=== PATIENT | female | born 1935 | race Caucasian/White ===

== ENCOUNTER 2018-03-05 15:40 | Inpatient (IN) | payer OTHER ==
[~2018-03-05 15:40] MED LIST: VANCOMYCIN 1.25 GM in NA CHLORIDE 0.9% 250 ML IVPB SCH
[2018-03-05] MEDS ORDERED: NA CHLORIDE 0.9% 500 ML ONE (16:22)
[2018-03-05 16:24] LABS: Absolute Lymphocytes (CBC) 3.1 K/uL (0.7-4.9); Absolute Monocytes 0.5 K/uL (0.1-1.3); Absolute Neutrophil 4.4 K/uL (1.8-8.0); Basophils % 0.4 % (0-1.3); Eosinophils % 0.4 % (0-4.4); Hematocrit 45.9 % (36.0-45.0); Lymphocytes % 38.5 % (15.3-44.8); MCH 30.9 pg (27.0-35.0); MCV 92.6 fL (80-100); MPV 8.6 fL (7.6-11.3); Monocytes % 6.7 % (3.3-12.3); RBC Red Blood Cell Count 4.96 M/uL (3.86-4.86)
--- NOTE | 2018-03-05 17:18 | ER ---
Nurse's Notes [facility] Name: Jessica Gibson Age: 83 yrs Sex: Female : 1935 Arrival Date: 03/05/2018 Time: 15:43 Bed 27 Private MD: Diagnosis: Thrush;Cellulitis of right lower limb Presentation: 03/05 15:44 Presenting complaint: EMS states: wound infection on right foot that is progressing. Pt dm5 is unable to take oral medication due to thrush and pain. Wound infection/redness marked yesterday in wound healing center and infection is spreading up foot. pt is afebrile at this time. Transition of care: patient was received from another setting of care (long-term care facility), [facility]. Onset of symptoms was February 19, 2018. Risk Assessment: Do you want to hurt yourself or someone else? Unable to obtain Other: pt is nonverbal. Care prior to arrival: None. 15:44 Method Of Arrival: EMS: [facility] dm5 15:44 Acuity: NOVA 3 dm5 16:30 Initial Sepsis Screen: Does the patient meet any 2 criteria? No. Patient's initial tw2 sepsis screen is negative. Does the patient have a suspected source of infection? Yes: Skin breakdown/wound. Triage Assessment: 15:48 General: Appears in no apparent distress. uncomfortable, Behavior is calm, flat. Pain: dm5 Complains of pain in right foot. Neuro: Level of Consciousness is awake, pt does not speak or follow commands, this is baseline. Derm: Wound noted medial aspect of right great toe joint. Historical: - Allergies: 15:48 buspirone HCl; dm5 15:48 Sulfa (Sulfonamide Antibiotics); dm5 15:48 Simvastatin; dm5 15:48 venlafaxine; dm5 15:48 ezetimibe; dm5 - PSHx: 15:48 Tonsillectomy; Hysterectomy; dm5 - Immunization history:: Adult Immunizations. - Social history:: Smoking status: Patient/guardian denies using tobacco, the patient reports quitting approximately 10 years ago. - Family history:: not pertinent. - Ebola Screening: : Patient denies travel to an Ebola-affected area in the 21 days before illness onset. - Hospitalizations: : No recent hospitalization is reported. - History obtained from: granddaughter. Screenin:30 Abuse screen: Denies injuries from another. Nutritional screening: No deficits noted. tw2 Tuberculosis screening: No symptoms or risk factors identified. Fall Risk Secondary diagnosis (15 points) dementia, impaired mobility, CVA. Assessment: 16:00 General: Appears in no apparent distress. slender, Behavior is flat. Pain: Complains of tw2 pain in right foot. Neuro: Level of Consciousness is awake, pt is awake, but does not communicate, per family this is pts baseline. Cardiovascular: Heart tones S1 S2 Patient's skin is warm and dry. Respiratory: Airway is patent Respiratory effort is even, unlabored, Respiratory pattern is regular, symmetrical, Breath sounds are clear bilaterally. GI: No signs and/or symptoms were reported involving the gastrointestinal system. Bowel sounds present X 4 quads. : No signs and/or symptoms were reported regarding the genitourinary system. EENT: No signs and/or symptoms were reported regarding the EENT system. Derm:. Derm: Wound noted right foot. Musculoskeletal: contracture noted to left arm, left sided weakness from previous CVA. 16:30 Reassessment: Patient appears in no apparent distress at this time. No changes from tw2 previously documented assessment. Patient and/or family updated on plan of care and expected duration. Pain level reassessed. 17:40 Reassessment: Patient appears in no apparent distress at this time. No changes from tw2 previously documented assessment. Patient and/or family updated on plan of care and expected duration. Pain level reassessed. wound care to wound on the right great toe and ball of right foot, wet to dry dressing applied, wrapped with kerlix, secure with paper tape, pts foot was elevated using towel to offload the area. 18:14 Reassessment: Patient appears in no apparent distress at this time. No changes from tw2 previously documented assessment. Patient and/or family updated on plan of care and expected duration. Pain level reassessed. Vital Signs: 15:48 BP 107 / 86; Pulse 66; Resp 16; Pulse Ox 100% on R/A; Weight 74.84 kg (R); Height 5 ft. dm5 7 in. (170.18 cm) (R); 16:29 BP 123 / 67; Pulse 68; Resp 14; Temp 97.6; Pulse Ox 100% on 2 lpm NC; tw2 17:49 BP 142 / 85; Pulse 92; Resp 16; Pulse Ox 100% on 2 lpm NC; tw2 15:48 Body Mass Index 25.84 (74.84 kg, 170.18 cm) dm5 ED Course: 15:43 Patient arrived in ED. dm5 15:46 Triage completed. dm5 15:47 Yeison Naqvi MD is Attending Physician. rn 15:48 Arm band placed on Patient placed in an exam room, on ice cream freezer, on pulse dm5 oximetry. 15:50 Bed in low position. Call light in reach. Side rails up X2. Adult w/ patient. Cardiac tw2 monitor on. Pulse ox on. NIBP on. Warm blanket given. 16:00 No provider procedures requiring assistance completed. Inserted saline lock: 22 gauge tw2 in right forearm, using aseptic technique. Blood collected. 16:25 Estefany Roldan RN is Primary Nurse. tw2 17:16 Thomas Redman MD is Hospitalizing Provider. rn 18:14 Patient admitted, IV remains in place. tw2 Administered Medications: 16:15 Drug: NS 0.9% 500 ml Route: IV; Rate: bolus; Site: right forearm; tw2 17:00 Follow up: Response: No adverse reaction; IV Status: Completed infusion; IV Intake: tw2 500ml 17:35 Drug: vancoMYCIN 1 grams Route: IVPB; Infused Over: 2 hrs; Site: right forearm; tw2 18:14 Follow up: IV Status: Infusion continued upon admission tw2 Intake: 17:00 IV: 500ml; Total: 500ml. tw2 Outcome: 17:17 Decision to Hospitalize by Provider. rn 18:14 Admitted to Med/surg accompanied by tech, via stretcher, room 407, with chart, Report tw2 called to ZACHARY Wilburn 18:14 Condition: stable 18:14 Instructed on the need for admit. 18:22 Patient left the ED. tw2 Signatures: Lisset Gibson RN RN 5 Yeison Naqvi MD MD rn Wise, Tara, RN RN tw2
--- NOTE | 2018-03-05 17:18 | EDPHYS ---
Physician Documentation [facility] Name: Jessica Gibson Age: 83 yrs Sex: Female : 1935 Arrival Date: 03/05/2018 Time: 15:43 Bed 27 Private MD: ED Physician Yeison Naqvi HPI: 03/05 15:54 This 83 yrs old Female presents to ER via EMS with complaints of Wound rn Infection, Thrush. 15:55 The patient presents with cellulitis of the right foot. rn 15:56 Description: erythematous, warm. Onset: The symptoms/episode began/occurred at an rn unknown time. Possible cause(s): unknown. Severity of symptoms: At their worst the symptoms were mild, in the emergency department the symptoms are unchanged. The patient has experienced similar episodes in the past. Family reports diagnosed with cellulitis yesterday, originating from chronic ulcer of right foot, seen at wound care, prescribed augmentin, has not been eating or drinking, + thrush, unable to take oral abx, brought in because not able to take abx, and cellulitis/warmth/redness has increased beyond markings at wound care. . Historical: - Allergies: 15:48 buspirone HCl; dm5 15:48 Sulfa (Sulfonamide Antibiotics); dm5 15:48 Simvastatin; dm5 15:48 venlafaxine; dm5 15:48 ezetimibe; dm5 - PSHx: 15:48 Tonsillectomy; Hysterectomy; dm5 - Immunization history:: Adult Immunizations. - Social history:: Smoking status: Patient/guardian denies using tobacco, the patient reports quitting approximately 10 years ago. - Family history:: not pertinent. - Ebola Screening: : Patient denies travel to an Ebola-affected area in the 21 days before illness onset. - Hospitalizations: : No recent hospitalization is reported. - History obtained from: granddaughter. ROS: 15:56 Unable to obtain ROS due to baseline dementia. rn Exam: 15:56 Constitutional: This is a well developed, well nourished patient who is awake, alert, rn and in no acute distress. Head/Face: Normocephalic, atraumatic. ENT: dry MM, + oral thrush Cardiovascular: Regular rate and rhythm, No pulse deficits. Respiratory: Lungs have equal breath sounds bilaterally, clear to auscultation, No increased work of breathing, no retractions or nasal flaring. Abdomen/GI: soft, non-tender Skin: Warm, dry MS/ Extremity: Pulses equal but diminished, + ulceration left foot medial to base of 1st toe, no drainage, + wound packing, + surrounding erythema and warmth, no streaking, no fluctuance, no crepitus. Neuro: Awake and alert, non-verbal, doesn't follow commands, + left sided contractures. Vital Signs: 15:48 BP 107 / 86; Pulse 66; Resp 16; Pulse Ox 100% on R/A; Weight 74.84 kg (R); Height 5 ft. dm5 7 in. (170.18 cm) (R); 16:29 BP 123 / 67; Pulse 68; Resp 14; Temp 97.6; Pulse Ox 100% on 2 lpm NC; tw2 17:49 BP 142 / 85; Pulse 92; Resp 16; Pulse Ox 100% on 2 lpm NC; tw2 15:48 Body Mass Index 25.84 (74.84 kg, 170.18 cm) dm5 MDM: 15:47 Patient medically screened. rn 17:14 Differential diagnosis: cellulitis. Data reviewed: vital signs, nurses notes, lab test rn result(s), radiologic studies, plain films, and as a result, I will admit patient. Counseling: I had a detailed discussion with the patient and/or guardian regarding: the historical points, exam findings, and any diagnostic results supporting the discharge/admit diagnosis, lab results, radiology results, the need for further work-up and treatment in the hospital. Admission orders: after a detailed discussion of the patient's condition and case, the admit orders are written by me. ED course: Pt unable to take PO due to weakness/AMS/dementia/thrush, admitted to Dr. Redman for IV abx given cellulitis worse, as well as hospice evaluation.. 03/05 15:48 Order name: CBC with Diff; Complete Time: 16:56 rn 03/05 15:48 Order name: Basic Metabolic Panel; Complete Time: 16:56 rn 03/05 15:48 Order name: Blood Culture Adult (2) rn 03/05 15:48 Order name: Procalcitonin; Complete Time: 16:56 rn 03/05 15:48 Order name: Lactate; Complete Time: 16:56 rn 03/05 15:48 Order name: Wound Culture rn 03/05 15:48 Order name: IV Start; Complete Time: 16:10 rn 03/05 15:48 Order name: Wound Care; Complete Time: 17:37 rn Administered Medications: 16:15 Drug: NS 0.9% 500 ml Route: IV; Rate: bolus; Site: right forearm; tw2 17:00 Follow up: Response: No adverse reaction; IV Status: Completed infusion; IV Intake: tw2 500ml 17:35 Drug: vancoMYCIN 1 grams Route: IVPB; Infused Over: 2 hrs; Site: right forearm; tw2 18:14 Follow up: IV Status: Infusion continued upon admission tw2 Disposition: 03/05/18 17:17 Hospitalization ordered by Thomas Redman for Inpatient Admission. Preliminary diagnosis are Thrush, Cellulitis of right lower limb. - Bed requested for Telemetry/MedSurg (Inpatient). - Status is Inpatient Admission. tw2 - Condition is Stable. - Problem is an ongoing problem. - Symptoms are unchanged. UTI on Admission? No Signatures: Dispatcher [employer] [facility] Lisset Gibson RN RN dm5 Yeison Naqvi MD MD rn Wise, Tara, RN RN tw2 Jie Layc RN RN df Corrections: (The following items were deleted from the chart) 16:22 15:49 Foot Right 3 View+RAD.RAD.BRZ ordered. [facility] 17:54 17:17 Hospitalization Ordered by Thomas Redman MD for Inpatient Admission. Preliminary df diagnosis is Thrush; Cellulitis of right lower limb. Bed requested for Telemetry/MedSurg (Inpatient). Status is Inpatient Admission. Condition is Stable. Problem is an ongoing problem. Symptoms are unchanged. UTI on Admission? No. rn 18:22 17:54 03/05/2018 17:17 Hospitalization Ordered by Thomas Redman MD for Inpatient tw2 Admission. Preliminary diagnosis is Thrush; Cellulitis of right lower limb. Bed requested for Telemetry/MedSurg (Inpatient). Status is Inpatient Admission. Condition is Stable. Problem is an ongoing problem. Symptoms are unchanged. UTI on Admission? No. df
[2018-03-05] MEDS ORDERED: ONDANSETRON 4 MG/2 ML VIAL IV PRN (17:34)
[2018-03-05] MEDS ORDERED: ACETAMINOPHEN 500 MG TAB PO PRN (17:34)
[2018-03-05] MEDS ORDERED: MORPHINE 2 MG/ML SYR IV PRN (17:34)
[2018-03-05] MEDS ORDERED: VANCOMYCIN 1 GM/250 ML BAG ONE (17:37)
[2018-03-05] MEDS ORDERED: VANCOMYCIN 1.25 GM in NA CHLORIDE 0.9% 250 ML IVPB SCH (18:00)
[2018-03-05] MEDS: VANCOMYCIN 1.25 GM in NA CHLORIDE 0.9% 250 ML IVPB SCH (18:00)
[2018-03-05] MEDS: D5 0.45 NS 1,000 ML IV SCH (19:55)
[2018-03-05] MEDS ORDERED: VANCOMYCIN 1GM/D5W 200 ML IV SCH (21:00)
[2018-03-05 21:40] VITALS: BMI 25.8
--- NOTE | 2018-03-05 22:42 | P.HP ---
Certification for Inpatient Patient admitted to: Inpatient With expected LOS: >2 Midnights Practitioner: I am a practitioner with admitting privileges, knowledge of patient current condition, hospital course, and medical plan of care. Services: Services provided to patient in accordance with Admission requirements found in Title 42 Section 412.3 of the Code of Federal Regulations Patient History Date of Service: 03/05/18 Reason for admission: cellulitis History of Present Illness: Ms Gibson is an 83 years old woman with history of multiple medical problems including HTN, Dementia, CVA, CAD who start about 2 weeks ago with a wound on her right foot first toe. Gradually the wound was getting worse, and currently has a black eschar on the center, with a redness area around. No history of fever or chills, however, the patient has been more sleepy than usual today. At arrival on ER she is not following commands, remain afebrile, WBC WNL. Allergies No Known Allergies Allergy (Unverified 03/05/18 21:44) Home medications list reviewed: Yes Home Medications: ALPRAZolam [Xanax*] 1 tab PO BIDP PRN 05/12/13 Dipyridamole/Aspirin [Aggrenox 25 mg-200 mg Cap*] 1 cap PO BID 05/12/13 Docosahexanoic AC/Epa [Fish Oil 1,000 MG*] 1 cap PO TID 05/12/13 Galantamine [Razadyne*] 12 mg PO BID 05/12/13 Garlic Tab 1,000 mg PO TID 05/12/13 Melatonin 5 mg PO BEDTIME PRN 05/12/13 Niacin [Niacor] 500 mg PO BEDTIME 05/12/13 Plant Stanol Erma [Cholest Off] 450 mg PO BID 05/12/13 Rosuvastatin [Crestor*] 5 mg PO M,W,F 05/12/13 Rivaroxaban [Xarelto*] 5 mg PO DAILY #30 tablet 05/19/13 Hydrocodone 10/APAP 325 [[place] 10/325*] 1 tab PO Q8HP PRN #30 tab 05/21/13 levoFLOXacin [Levaquin*] 500 mg PO DAILY #5 tab 09/16/13 predniSONE [Deltasone*] 10 mg PO SEECOM #15 tab 09/16/13 - Past Medical/Surgical History Has patient received pneumonia vaccine in the past: Yes Diabetic: No -: CVA -: CAD -: Alzheimer's -: Hyperlipidemia -: AAA -: History of DVT. -: TONSILECTOMY, HYSTERCTOMY, 05/2013, partial hip surgery -: shoulder 05/2013 Psychosocial/ Personal History: skilled nursing resident. - Family History Father -: Heart disease, Hypertension, Diabetes Mother -: Heart disease, Cancer - Social History Smoking Status: Never smoker Alcohol use: No CD- Drugs: No Caffeine use: Yes Place of Residence: Long-Term Review of Systems 10-point ROS is otherwise unremarkable Physical Examination - Vital Signs Temperature: 97.6 F Blood Pressure: 142/85 Pulse: 92 Respirations: 16 - Physical Exam General: Alert, In no apparent distress, Other (obtunded) HEENT: Atraumatic, PERRLA, Mucous membr. moist/pink, Sclerae nonicteric Neck: Supple, 2+ carotid pulse no bruit, No LAD, Without JVD or thyroid abnormality Respiratory: Clear to auscultation bilaterally, Normal air movement Cardiovascular: Regular rate/rhythm, Normal S1 S2 Gastrointestinal: Normal bowel sounds, No tenderness Musculoskeletal: No tenderness Integumentary: No rashes Neurological: Normal strength at 5/5 x4 extr, Sensation intact, Normal reflexes 2+ Lymphatics: No axilla or inguinal lymphadenopathy - Studies Laboratory Data (last 24 hrs) 03/05/18 16:00: Sodium 143, Potassium 4.0, BUN 18, Creatinine 0.80, Glucose 98 03/05/18 16:00: WBC 8.2, Hgb 15.3 H, Hct 45.9 H, Plt Count 233 Assessment and Plan - Problems (Diagnosis) (1) Cellulitis Current Visit: Yes Status: Acute Qualifiers: Site of cellulitis: extremity Site of cellulitis of extremity: toe Laterality: right Qualified Code(s): L03.031 - Cellulitis of right toe (2) Dementia Current Visit: No Status: Chronic - Plan The patient will be admitted to the hospital due to right foot cellulits/wound. She has been started on empiric antibiotic treatment, family is considering to start hospice. Social service consult done. Consider to consult surgery team if the family decided to continue her medical treatment. - Advance Directives Does patient have a Living Will: Yes Does patient have a Durable POA for Healthcare: Yes - Code Status/Comfort Care Code Status Assessed: Yes Code Status: Full Code
[2018-03-05] MEDS: Levofloxacin 750mg IV 750 MG/150 ML BAG IV SCH (23:00)
[2018-03-06 04:41] LABS: Absolute Lymphocytes (CBC) 2.1 K/uL (0.7-4.9); Absolute Monocytes 0.5 K/uL (0.1-1.3); Absolute Neutrophil 3.3 K/uL (1.8-8.0); Basophils % 0.5 % (0-1.3); Hematocrit 39.4 % (36.0-45.0); Lymphocytes % 35.4 % (15.3-44.8); MCH 31.3 pg (27.0-35.0); MPV 8.7 fL (7.6-11.3); Monocytes % 8.8 % (3.3-12.3); RBC Red Blood Cell Count 4.33 M/uL (3.86-4.86)
[2018-03-06 04:55] LABS: Potassium 3.6 mmol/L (3.5-5.1)
[2018-03-06] MEDS: D5 0.45 NS 1,000 ML IV SCH ×2 (06:19→20:20)
[2018-03-06] MEDS: NYSTATIN 500,000 UNIT/5 ML UDC PO SCH ×4 (09:01→20:20)
--- NOTE | 2018-03-06 15:26 | RAD REPORT ---
EXAM DESCRIPTION: US - Upper Lower Extrem Art Multi - 03/06/2018 3:00 pm CLINICAL HISTORY: Nonhealing foot wound, leg pain COMPARISON: None. TECHNIQUE: Right brachial artery pressure measurements were obtained. Doppler interrogation and pena scale assessment performed. Waveforms were obtained along the length of each lower extremity. Ankle p ressure measurements were obtained with index values calculated. Visual inspection of the lower extre mity arterial tree performed. FINDINGS: LYRIC values were calculated at 0.64 on the right and 0.85 on the left. Toe index on the lef t was 0.34 with a very low right toe index of 0.08. Visual inspection psoas significant calcifications along the entire length of the bilateral lower ext remity arterial tree. No one focal flow restricting lesions seen though flow was diminished throughou t the lower extremities. Waveforms were predominantly monophasic throughout each leg. Each common femoral artery shows a minim ally biphasic pattern. Right common femoral artery velocity was 76 cm/second. Right femoral artery velocity values range fro m 18-63 cm/second. Popliteal artery was 21 cm/second with posterior tibial and dorsalis pedis velocit ies 36 cm/second and 48 cm/second. Left common femoral artery velocity was 100 cm/second with the femoral artery velocities ranging from 104-170 cm/second. Left popliteal artery velocity was 50 cm/second with the posterior tibial and gisella salis pedis artery velocities 13 cm per second and 46 cm/second, respectively. IMPRESSION: Significant bilateral lower extremity arterial tree with extensive calcification in dimi nished flow throughout each leg. No focal occlusion or 1 focal flow restricting lesion identifiable. Bilateral abnormal LYRIC values of 0.64 on the right and 0.85 on the left.
--- NOTE | 2018-03-06 16:55 | PN ---
Date of Progress Note: 03/06/2018 Subjective: The patient seen and examined, chart reviewed, and case discussed with RN. The family a t the bedside. Treatment plan explained. All questions answered. The patient did not have any acut e events overnight. Has been not eating over the past few days. Decreased p.o. intake. Has been mo re lethargic. Code Status: Full code. Medications: List reviewed. Physical Examination: Vital Signs: Temperature 96.4, heart rate 64, blood pressure 110/53, respirations 20, O2 97% on 2 L via nasal cannula. General: Awake, alert, nonverbal, elderly female, ill-appearing. CV: S1 and S2. Peripheral pulses weak bilaterally. Regular rate and rhythm. Gastrointestinal: Abdomen is soft, nontender, nondistended. Positive bowel sounds. Extremities: No clubbing, cyanosis, or edema. Neuro: The patient has weakness on the left side with left ptosis. The patient is nonverbal. Skin: The patient has ulceration on the plantar aspect of the first toe on the right with some surro unding erythema, improved from yesterday's margins. HEENT: Oropharynx is clear. The patient does have thrush on her tongue. Laboratory Data: Sodium 144, potassium 3.6, chloride 112, CO2 26, BUN 17, creatinine 0.7, glucose 91 , calcium 8.5. WBC 6, H and H 13.5 and 39.4, platelets 199. Blood cultures pending. Wound culture from the right foot shows 4+ Staph aureus coagulase positive. Assessment And Plan: An 83-year-old female with: 1.Right lower extremity cellulitis of the first toe. The patient has surrounding erythema, wound. The patient may need debridement. We will consult Dr. Orlando, who has been following the patient in [facility]. We will continue with santyl and IV antibiotics. Wound cultures so far growing St aph aureus. We will follow up on sensitivities, improving. 2.Dementia, Alzheimer's type, early onset without behavioral disturbance. 3.Coronary artery disease, [place] artery and [place] heart without angina. Continue Plavix. 4.History of cerebrovascular accident with left-sided residual weakness. The patient nonverbal. We will continue home medications. 5.Hyperlipidemia, on statin. 6.History of abdominal aortic aneurysm. 7.History of deep vein thrombosis. Gastrointestinal and deep vein thrombosis prophylaxis addressed. Plan: We will await Dr. Orlando evaluation for surgical debridement. Family is considering hospice. We will engage director social referral. The patient also has dysphagia. The patient evaluated by spe ech therapy, recommending a modified barium swallow study, which cannot occur till tomorrow. We will also check an arterial Doppler to evaluate lower extremity arterial status. Overall, poor prognosis . SA/MODL Voice ID: [id number] Report ID: [id number]
[2018-03-06] MEDS: VANCOMYCIN 1.25 GM in NA CHLORIDE 0.9% 250 ML IVPB SCH (17:34)
[2018-03-06] MEDS: Levofloxacin 750mg IV 750 MG/150 ML BAG IV SCH (23:41)
[2018-03-07 04:57] LABS: Absolute Monocytes 0.6 K/uL (0.1-1.3); Absolute Neutrophil 3.5 K/uL (1.8-8.0); Basophils % 0.3 % (0-1.3); Eosinophils % 1.5 % (0-4.4); Lymphocytes % 32.6 % (15.3-44.8); MCH 31.1 pg (27.0-35.0); MCV 90.3 fL (80-100); MPV 8.6 fL (7.6-11.3); Monocytes % 9.1 % (3.3-12.3); RBC Red Blood Cell Count 4.21 M/uL (3.86-4.86)
[2018-03-07 05:04] LABS: BUN Blood Urea Nitrogen 9 mg/dL (7-18); Bicarbonate 24 mmol/L (21-32); Glucose Level 95 mg/dL (74-106); Potassium 3.3 mmol/L (3.5-5.1); Sodium Level 142 mmol/L (136-145)
--- NOTE | 2018-03-07 07:48 | P.CNS ---
Date of Consult: 03/07/18 Reason for Consult: cellulitis right foot Requesting Physician: Thomas Redman Chief Complaint: cellulitis History of Present Illness: Patient's family states that the patient has had the wound for approximately two weeks after wearing a splint causing pressure Allergies adhesive tape Allergy (Verified 03/06/18 00:37) unknown buspirone [From BuSpar] Allergy (Verified 03/06/18 00:37) unknown Sulfa (Sulfonamide Antibiotics) Allergy (Verified 03/06/18 00:37) unknown venlafaxine Allergy (Verified 03/06/18 00:37) unknown Home Medications: Acetaminophen [Pain Relief Extra Strength] 1,000 mg PO Q4H 03/06/18 Acetaminophen with Codeine [Acetaminophen-Cod #3 Tablet] 1 tab PO TID PRN Clopidogrel Bisulfate [Plavix] 75 mg PO DAILY 6PM 03/06/18 Collagenase [Santyl Ointment*] 1 bird TD PRN 03/06/18 Cranberry Fruit Extract/Vit C [Azo Cranberry Softgel] 2 tab PO TID 03/06/18 Donepezil HCl [Aricept] 10 mg PO BEDTIME 03/06/18 Fexofenadine HCl [Fernanda Allergy] 180 mg PO DAILY 03/06/18 Guaif/Dm [Robitussin Dm*] 5 ml PO Q4H PRN 03/06/18 Ibuprofen [Motrin] 200 mg PO Q4HR PRN 03/06/18 Polyethylene Glycol 3350 [Miralax] 17 gm PO DAILY PRN 03/06/18 Potassium Oral Tab [Klor-Con 10 mEq Tab*] 25 meq PO DAILY 03/06/18 Rosuvastatin Calcium 10 mg PO BEDTIME 03/06/18 - Past Medical/Surgical History Diabetic: No -: CVA -: CAD -: Alzheimer's -: Hyperlipidemia -: AAA -: History of DVT. -: TONSILECTOMY, HYSTERCTOMY, 05/2013, partial hip surgery -: shoulder 05/2013 Psychosocial/ Personal History: assisted resident. - Family History Father Medical History: Heart disease, Hypertension, Diabetes Mother Medical History: Heart disease, Cancer - Social History Smoking Status: Former smoker Alcohol use: No CD- Drugs: No Caffeine use: Yes Place of Residence: [place] Review of Systems is unable to be obtained Physical Examination Temp Pulse Resp BP Pulse Ox 98.5 F 70 18 130/60 99 03/07/18 04:00 03/07/18 04:00 03/07/18 04:00 03/07/18 04:00 03/07/18 04:00 General: Demented, Confused Cardiovascular: No edema, Abnormal pulses Capillary refill: <2 Seconds Musculoskeletal: No clubbing, No swelling, No contractures, No erythema, No tenderness, No warmth Integumentary: Pressure ulcer (Dry, black eschar right medial 1st mpj with reduced erythema periwound compared to wound care visit 03/04/28. No cellulitic streaking, no drainage, no purulence noted) Neurological: Abnormal sensation WBC within normal limits Imagings Data: xray right foot negative for osteomyelitis - Problems (1) Cellulitis Onset Date: 03/06/18 Current Visit: Yes Status: Acute Qualifiers: Site of cellulitis: extremity Site of cellulitis of extremity: toe Laterality: right Qualified Code(s): L03.031 - Cellulitis of right toe Conclusions/Impression: PAtient is responding to current iv antibiotics and the wound to the right foot is stable. No need to debride at this point due to the eschar/wound being stable and the patient having PVD. From a podiatric standpoint the patient can be d/c with antibiotic therapy and santyl to wound daily. Physician Review: Patient Assessed, Agree with Above Assessment and Plan Time Spent Managing Pts care (In Minutes): 35
[2018-03-07] MEDS: COLLAGENASE 30 GM OINTMENT TOP SCH (08:40)
[2018-03-07] MEDS: NYSTATIN 500,000 UNIT/5 ML UDC PO SCH ×4 (08:40→19:50)
[2018-03-07] MEDS: D5 0.45 NS 1,000 ML IV SCH ×2 (11:10→21:35)
[2018-03-07] MEDS: KCL 20 MEQ/100 mL IVPB 20 MEQ/100 ML BAG IV SCH ×2 (12:06→14:54)
[2018-03-07 12:26] LABS: Urine Appearance CLEAR; Urine Bilirubin NEGATIVE (NEG); Urine Blood TRACE (NEG); Urine Color YELLOW; Urine Glucose NEGATIVE (NEG); Urine Protein NEGATIVE (NEG); Urine Specific Gravity 1.015 (1.005-1.030)
[2018-03-07 12:29] LABS: Urine Microscopic Reflex ORDER UMIC
[2018-03-07 12:41] LABS: Urine Bacteria <20 /HPF (<20); Urine Culture Reflex Order NOT NEEDED; Urine Mucus LIGHT /HPF (NONE SEEN)
[2018-03-07] MEDS: CEFAZOLIN 1GM (PREMIX IV) 1 GM/50 ML BAG IV SCH (18:40)
--- NOTE | 2018-03-07 19:06 | PN ---
Date of Progress Note: 03/07/2018 History: The patient seen and examined. Chart reviewed and case discussed with RN and Dr. Orlando. Nancy Orlando does not recommend any surgical intervention at this time. Family at the bedside. The tito ent did not cooperate with the modified barium swallow study. We will re-attempt in a.m. The patien t still n.p.o. Code status do not resuscitate. I spoke with the patient's family members. She does have an out of hospital DNR as well. They are considering hospice care upon discharge. Medications: List reviewed. Physical Examination: Vital Signs: Temperature 97.2, heart rate 68, blood pressure 105/52, respirations 16, O2 82%, improv ed to 94% on 2 L via nasal cannula. General: Asleep, but arousable. The patient is not cooperative with exam, elderly female, ill-appea ring. CV: S1, S2. Regular rate and rhythm. Peripheral pulses present. Respiratory: Moving air well bilaterally. No wheezing. Gastrointestinal: Abdomen is soft, nontender, nondistended. Positive bowel sounds. Extremities: No clubbing, cyanosis, or edema. Skin: Right first toe plantar aspect has ulceration with black eschar present. Surrounding erythema has improved significantly. Neuro: The patient has weakness on the left side and left ptosis. The patient is nonverbal. Laboratory Data: Sodium 142, potassium 3.3, chloride 110, CO2 24, BUN 9, creatinine 0.6, glucose 95, calcium 8.5. WBC 6.1, H and H 13.1 and 38, platelets 188, neutrophils 56%. Imaging Studies: Significant bilateral lower extremity arterial tree with extensive calcification an d diminished flow throughout each leg. No focal occlusion or focal flow restricting lesion identifia ble. Bilateral abnormal LYRIC values of 0.64 on the right and 0.85 on the left. Assessment And Plan: An 83-year-old female with: 1.Right lower extremity cellulitis of the foot affecting first toe with black eschar wound, improvin g. No need for debridement per Dr. Orlando. Appreciate his input. We will continue with Santyl and I V antibiotics. Cultures so far growing methicillin-susceptible Staphylococcus aureus. We will adjus t antibiotics. The patient is still unable to tolerate p.o. intake. 2.Dysphagia, modified barium swallow study pending. The patient refused her modified barium swallow study, was uncooperative. We will repeat a modified barium swallow study in a.m. Continue speech t herapy evaluation. 3.Alzheimer's dementia, early onset without behavioral disturbance. 4.Coronary artery disease, [place] artery and [place] heart without angina. Continue her medications. We need to place NG tube if unable to tolerate p.o. by tomorrow. 5.History of cerebrovascular accident with left-sided residual weakness, nonverbal. 6.Hyperlipidemia. 7.Statin. 8.History of abdominal aortic aneurysm. 9.Peripheral vascular disease, bilateral. No significant flow-limiting stenosis upon arterial Doppl er. 10.History of deep venous thrombosis. 11.Gastrointestinal and deep vein thrombosis prophylaxes addressed. We will repeat a modified bariu m swallow study in a.m. Overall plan is for hospice care. However, patient unable to tolerate p.o. intake at this time, may end up needing a PEG tube. We will discuss with the family after modified b arium swallow study is completed. Overall, poor prognosis. The patient has been declining steadily over the past couple of years. 12.Thrush. Continue nystatin swish and swallow. SA/MODL Voice ID: [id number] Report ID: [id number]
[2018-03-07 23:47] LABS: Potassium 3.9 mmol/L (3.5-5.1)
[2018-03-08] MEDS: CEFAZOLIN 1GM (PREMIX IV) 1 GM/50 ML BAG IV SCH ×3 (00:56→14:21)
[2018-03-08] MEDS ORDERED: KCL 20 MEQ/100 mL IVPB 20 MEQ/100 ML BAG IV SCH ×2 (01:00→10:00)
[2018-03-08 06:48] LABS: Absolute Lymphocytes (CBC) 2.2 K/uL (0.7-4.9); Absolute Monocytes 0.4 K/uL (0.1-1.3); Absolute Neutrophil 3.3 K/uL (1.8-8.0); Basophils % 0.4 % (0-1.3); Eosinophils % 1.2 % (0-4.4); Hematocrit 41.4 % (36.0-45.0); Lymphocytes % 36.1 % (15.3-44.8); MCH 30.7 pg (27.0-35.0); MCV 89.9 fL (80-100); MPV 8.6 fL (7.6-11.3); Monocytes % 7.1 % (3.3-12.3); RBC Red Blood Cell Count 4.61 M/uL (3.86-4.86)
[2018-03-08 06:53] LABS: Potassium 3.5 mmol/L (3.5-5.1)
[2018-03-08] MEDS ORDERED: POTASSIUM CL SA 10 MEQ TAB PO ONE (07:54)
[2018-03-08] MEDS: NYSTATIN 500,000 UNIT/5 ML UDC PO SCH ×3 (09:00→17:00)
[2018-03-08 09:27] VITALS: O2SAT 98
[2018-03-08] MEDS: COLLAGENASE 30 GM OINTMENT TOP SCH (09:36)
[2018-03-08] MEDS: D5 0.45 NS 1,000 ML IV SCH (14:26)
[2018-03-08] MEDS ORDERED: CEFAZOLIN/SWI 1gm 1 GM/10 ML SYR IV SCH (18:00)
[2018-03-08 20:33] VITALS: BP 142/59; TEMP 97.8
--- NOTE | 2018-03-09 16:16 | DS ---
Date of Discharge: 03/08/2018 Consultants: Dr. Orlando with Podiatry. Admitting Diagnoses: 1.Cellulitis of the right lower extremity, right big toe. 2.Dementia, Alzheimer's type without behavioral disturbance. 3.History of cerebrovascular accident. 4.Coronary artery disease. 5.Hyperlipidemia. 6.History of abdominal aortic aneurysm. Discharge Diagnoses: 1.Right lower extremity cellulitis of the foot affecting the first toe with eschar. Wound improved secondary to Staph aureus, which is methicillin sensitive. 2.Dysphagia. The patient is uncooperative with swallow study. Since the patient is going to [facility], she will continue with careful hand feeding understanding that there is risk of aspiration. 3.Alzheimer dementia, early onset without behavioral disturbance. 4.Coronary artery disease [place] artery and [place] heart without angina. 5.History of cerebrovascular accident with left-sided residual weakness, nonverbal. 6.Hyperlipidemia, on statin. 7.History of abdominal aortic aneurysm. 8.Peripheral vascular disease, bilateral. 9.History of deep venous thrombosis. Hospital Course: The patient is an 83-year-old female with history of heart disease, CVA, dysphagia, Alzheimer's dementia, hyperlipidemia, and peripheral vascular disease who has been declining recentl y, comes in with worsening erythema and redness to her wound on her right foot, first toe. The patie nt was started on IV antibiotics. Cultures were obtained, which grew out MSSA. The patient was seen by Dr. Orlando with Podiatry, who had been following her with wound care for several years. He did no t recommend any debridement at this time. She will be continued with dental. The patient did have d ysphagia and she was evaluated by speech therapy and modified barium swallow study was ordered. Beltran valeria, the patient did not cooperate with the study multiple times, which was attempted more than twice . Family were reluctant to proceed with any invasive measures such as PEG tube placement. They unde rstand that the patient will continue with careful hand feeding, will have risk for aspiration. They accept the risks, benefits, and the alternatives. The patient was then selected to go to hospice pe r decision makers and was set up with [facility]. The patient was then discharged to home with [facility] in a fair condition. Activity: Fall precautions. Medications: As per medication reconciliation list. Followup: Follow up with primary care physician as needed. Follow up with Dr. Orlando in Podiatry in 2 weeks. Follow up with hospice physician. Return to the ER for worsening condition. Physical Examination: General: Asleep but arousable, not cooperative with exam, elderly female, ill-appearing. CV: S1, S2. Peripheral pulses weak bilaterally. Regular rate and rhythm. Respiratory: Moving air well bilaterally. No wheezing. Abdomen: Soft, nontender, nondistended. Positive bowel sounds. Extremities: No clubbing, cyanosis, edema. Neuro: Left-sided residual weakness and left ptosis. Nonverbal. Skin: Right foot, first toe black eschar wound. No further erythema. Total time spent discharging the patient was 45 minutes. /ZAFAR Voice ID: [id number] Report ID: [id number]
== END 2018-03-08 20:15 | disposition hospice, inpatient (51) | DRG 603 ==
LOC: ER 15:40 → ERHOLD 17:19 → 4TH 18:18
PROVIDERS: ADMIT Family Medicine; ATTEND Family Medicine
DX: L03.031 Cellulitis of right toe (principal); I69.354 Hemiplegia and hemiparesis following cerebral infarction affecting left non-dominant side; B95.61 Methicillin susceptible Staphylococcus aureus infection as the cause of diseases classified elsewhere; G30.9 Alzheimer's disease, unspecified; F02.80 Dementia in other diseases classified elsewhere, unspecified severity, without behavioral disturbance, psychotic disturbance, mood disturbance, and anxiety; I69.320 Aphasia following cerebral infarction; E78.5 Hyperlipidemia, unspecified; I73.9 Peripheral vascular disease, unspecified; Z86.718 Personal history of other venous thrombosis and embolism; Z87.891 Personal history of nicotine dependence; R13.10 Dysphagia, unspecified
CPT/HCPCS: 36415; 74230; 80048; 80202; 81003; 81015; 83605; 83735; 84132; 84145; 85025; 87040; 87070; 87077; 87186; 87205; 93923; 94760; 96361; 96365; 99204; 99285; J0690; J2270; J3370; J3590